=== PATIENT | female | born 1975 | race Caucasian/White ===

== ENCOUNTER 2019-10-26 17:52 | Outpatient (CLI) | payer BC, SELFPAY ==
--- NOTE | ~2019-10-26 | XR_ITS ---
EXAMINATION: XR finger 4th LT min 2V DATE: 10/26/2019 18:12 INDICATION: Boxing injury with pain and swelling at the fourth proximal interphalangeal joint TECHNIQUE: Dorsal palmar, lateral and 2 oblique views of the left fourth digit were obtained COMPARISON: None FINDINGS: Alignment is normal. No fracture. Joint spaces are normal. Soft tissues are unremarkable. IMPRESSION: 1. Negative left fourth digit radiographs. Reviewed, dictated and finalized at location A.
== END 2019-10-26 17:53 | disposition home or self-care (01) ==
LOC: ANHIMG 17:55
PROVIDERS: PCP Emergency Medicine; Visit Provider Emergency Medicine
DX: M79.645 Pain in left finger(s) (principal)
CPT/HCPCS: 73140

== ENCOUNTER 2019-11-06 10:09 | Outpatient (CLI) | payer BC, SELFPAY ==
--- NOTE | ~2019-11-06 | MM_ITS ---
EXAMINATION: MM screening [facility] BI w lou HISTORY: Screening mammogram TECHNIQUE: Craniocaudal and mediolateral oblique 3-D tomosynthesis images were obtained and synthetic 2-D images were generated. CAD analysis was submitted and interpreted. COMPARISON: 08/18/2018, 06/18/2017 BREAST PARENCHYMAL COMPOSITION: There are scattered areas of fibroglandular density. FINDINGS: There is no evidence of suspicious mass, calcification, or architectural distortion to sugg est malignancy in either breast. There has been no suspicious interval change. IMPRESSION: 1. No mammographic evidence of malignancy. 2. Recommend routine screening mammography in one year. BI-RADS Category 1: Negative Reviewed, dictated and finalized at location A.
== END 2019-11-06 10:10 | disposition home or self-care (01) ==
PROVIDERS: PCP Emergency Medicine; Visit Provider Emergency Medicine
DX: Z12.31 Encounter for screening mammogram for malignant neoplasm of breast (principal)
CPT/HCPCS: 77063; 77067

== ENCOUNTER → 2021-04-01 13:12 | Outpatient (CLI) | payer BC, SELFPAY ==
--- NOTE | ~2021-04-01 | XR_ITS ---
EXAMINATION: XR foot RT min 3V EXAM DATE: 04/01/2021 13:26 INDICATION: Right Foot Pain 4th Metatarsal. No Injury But Pt Runs. TECHNIQUE: Right foot dorsoplantar, lateral and oblique projections obtained and reviewed. There is no prior study for comparison. FINDINGS: Right metatarsal bones unremarkable. No periosteal reaction or band of sclerosis to sugges t subacute stress fracture. There are no acute fractures or dislocations identified. There is no sub cutaneous gas. The soft tissue is unremarkable. There are no radiopaque foreign bodies. 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 Reviewed, dictated and finalized at location A. [employer]
== END ==
PROVIDERS: PCP Emergency Medicine; Visit Provider Emergency Medicine
DX: M21.611 Bunion of right foot (principal); M19.071 Primary osteoarthritis, right ankle and foot
CPT/HCPCS: 73630